=== PATIENT | male | born 1995 | race Caucasian/White ===

== ENCOUNTER 2020-03-17 17:01 | Emergency (ER) | payer MEDICAID ==
--- NOTE | 2020-03-17 18:29 | ED Physician Documentation ---
PD HPI UPPER EXT INJURY - Stated complaint Stated Complaint: LT WRIST INJURY - Chief complaint Chief Complaint: Trauma Ext - History obtained from History obtained from: Patient (Fell on his skateboard on outstretched wrist and has moderate pain near the distal radius of the left wrist. No other injuries. This happened today.) Review of Systems Constitutional: reports: Reviewed and negative Throat: reports: Reviewed and negative Cardiac: reports: Reviewed and negative Respiratory: reports: Reviewed and negative PD PAST MEDICAL HISTORY - Past Medical History Past Medical History: No Psych: ADD/ADHD Musculoskeletal: Other Other Past Medical History: Spinal stenosis - Past Surgical History Past Surgical History: Yes General: Appendectomy - Present Medications Home Medications: Ambulatory Orders Medication Instructions Recorded Confirmed No Known Home Medications 10/29/14 10/29/14 - Allergies Allergies/Adverse Reactions: Allergies Allergy/AdvReac Type Severity Reaction Status Date / Time No Known Drug Allergies Allergy Verified 03/17/20 17:07 - Social History Does the pt smoke?: No Smoking Status: Current every day smoker Does the pt drink ETOH?: Yes Does the pt have substance abuse?: Yes Substance Use and Type: Marijuana - Immunizations Immunizations are current?: No Immunizations: TDAP >10years/unknown PD ED PE NORMAL - Vitals Vital signs reviewed: Yes - General General: Alert and oriented X 3, No acute distress - Extremities Extremities: Other (Mild tenderness of the dorsal wrist, not the snuffbox. Not on the ulnar side.) - Neuro Neuro: Alert and oriented X 3, Normal speech Results - Vitals Vitals: Vital Signs - 24 hr 03/17/20 03/17/20 17:08 18:44 Temperature 37.0 C 37.0 C Heart Rate 77 80 Respiratory 16 16 Rate Blood Pressure 160/100 H 146/93 H O2 Saturation 97 98 Oxygen O2 Source Room air PD MEDICAL DECISION MAKING - ED course ED course: X-ray shows a potential cortical lucency at the ulnar styloid, however he has absolutely no tenderness there so I think. it is inconsequential. Departure - Departure Disposition: 01 Home, Self Care Clinical Impression: Left wrist sprain Qualifiers: Encounter type: initial encounter Qualified Code(s): S63.502A - Unspecified sprain of left wrist, initial encounter Condition: Good Record reviewed to determine appropriate education?: Yes Instructions: ED Sprain Wrist, ED Splint Care Velcro Comments: Ibuprofen as needed for pain, wear the splint as needed for comfort. Return for new or worsening symptoms. Follow-up with your doctor in a week if not better.
[2020-03-17 18:45] VITALS: BP 146/93
--- NOTE | 2020-03-17 18:53 | XRAY Report ---
Reason: fall skateboard, wrist injury Procedure Date: 03/17/2020 Accession Number: [id number] / [id number] Procedure: XR - Wrist 4 View LT CPT Code: Final Report FULL RESULT: EXAM: LEFT WRIST RADIOGRAPHY EXAM DATE: 03/17/2020 06:31 PM. CLINICAL HISTORY: Fall skateboard, wrist injury. COMPARISON: None. TECHNIQUE: 4 views. FINDINGS: Bones: Cortical lucency seen at the base of the ulnar styloid concerning for a nondisplaced acute distal ulnar fracture. Adjacent soft tissue swelling. Correlate clinically. No other acute fractures are seen. Joints: No subluxation. IMPRESSION: Cortical lucency seen at the base of the ulnar styloid concerning for a nondisplaced acute distal ulnar fracture. Adjacent soft tissue swelling. Correlate clinically. No other acute fractures are seen. RADIA
== END 2020-03-17 19:05 | disposition home or self-care (01) ==
LOC: ED 17:01
DX: S63.502A Unspecified sprain of left wrist, initial encounter (principal); V00.131A Fall from skateboard, initial encounter; Y93.51 Activity, roller skating (inline) and skateboarding
CPT/HCPCS: 99282; 99283

== ENCOUNTER 2020-04-05 16:12 | Emergency (ER) | payer MEDICAID ==
[2020-04-05] MEDS ORDERED: KETOROLAC 30 MG/ML VIAL IVP STA (16:22)
[2020-04-05] MEDS ORDERED: SODIUM CHLORIDE 0.9% 1,000 ML IV STA (16:22)
[2020-04-05] MEDS ORDERED: ONDANSETRON 4 MG/2 ML VIAL IVP STA (16:22)
--- NOTE | 2020-04-05 16:24 | ED Physician Documentation ---
PD HPI ABD PAIN - Stated complaint Stated Complaint: ABD PX,VOMITING - History obtained from History obtained from: Patient - History of Present Illness Timing - onset: Other (This is a 24-year-old gentleman who uses marijuana daily. He has chronic back pain. Over the last month and a half or so he is developed constant burning left-sided abdominal pain associated with vomiting and occasionally diarrhea. He finds relief from a hot shower. He was started on omeprazole which is not helpful. He did have an ultrasound ordered by his primary care physician for this a couple of weeks ago which was reportedly normal. He has been losing weight during this timeframe.) Review of Systems Constitutional: reports: Sweats. denies: Fever, Chills Throat: denies: Dental pain / toothache, Sore throat Cardiac: denies: Chest pain / pressure, Palpitations PD PAST MEDICAL HISTORY - Past Medical History Psych: ADD/ADHD Musculoskeletal: Other - Past Surgical History Past Surgical History: Yes General: Appendectomy - Present Medications Home Medications: Ambulatory Orders Medication Instructions Recorded Confirmed Amoxicillin 2 tab PO TID #60 capsule 04/05/20 Dicyclomine [Bentyl] 20 mg PO QID PRN #15 capsule 04/05/20 Ondansetron Odt [Zofran] 4 mg TL Q6H PRN #10 tablet 04/05/20 - Allergies Allergies/Adverse Reactions: Allergies Allergy/AdvReac Type Severity Reaction Status Date / Time No Known Drug Allergies Allergy Verified 04/05/20 16:25 - Social History Does the pt smoke?: No Smoking Status: Current every day smoker Does the pt drink ETOH?: Yes Does the pt have substance abuse?: Yes - Immunizations Immunizations are current?: No Immunizations: TDAP >10years/unknown PD ED PE NORMAL - Vitals Vital signs reviewed: Yes (He appears anxious and is hypertensive) - General General: Alert and oriented X 3, No acute distress - HEENT HEENT: PERRL, EOMI - Neck Neck: Supple, no meningeal sign, No bony TTP - Cardiac Cardiac: RRR, No murmur - Respiratory Respiratory: No respiratory distress, Clear bilaterally - Abdomen Abdomen: Normal bowel sounds, Soft, Non tender - Back Back: No CVA TTP, No spinal TTP - Derm Derm: Normal color, Warm and dry - Extremities Extremities: No edema, No calf tenderness / cord - Neuro Neuro: Alert and oriented X 3, Normal speech Results - Vitals Vitals: Vital Signs - 24 hr 04/05/20 04/05/20 16:22 17:00 Temperature 36.7 C Heart Rate 101 H 86 Respiratory 16 18 Rate Blood Pressure 170/117 H 145/96 H O2 Saturation 100 98 Oxygen O2 Source Room air - Labs Labs: Laboratory Tests 04/05/20 04/05/20 16:30 16:30 WBC 7.6 RBC 5.15 Hgb 16.4 Hct 48.4 MCV 94.0 MCH 31.8 H MCHC 33.9 RDW 11.9 L Plt Count 229 MPV 9.9 Neut # (Auto) 5.6 Lymph # (Auto) 1.1 L [place] # (Auto) 0.8 Eos # (Auto) 0.0 Baso # (Auto) 0.1 Absolute Nucleated RBC 0.00 Nucleated RBC % 0.0 Sodium 137 Potassium 4.0 Chloride 97 L Carbon Dioxide 24 Anion Gap 16.0 H BUN 13 Creatinine 1.0 Estimated GFR (MDRD) 90 Glucose 91 Calcium 9.4 Total Bilirubin 2.0 H AST 47 H ALT 45 Alkaline Phosphatase 78 Total Protein 7.6 Albumin 4.6 Globulin 3.0 Albumin/Globulin Ratio 1.5 Lipase 24 - Rads (name of study) CT of the abdomen and pelvis with IV contrast Radiology: EMP read contemporaneously (Mild right-sided pneumonia, no intra- abdominal acute process.) PD MEDICAL DECISION MAKING - ED course ED course: 24-year-old gentleman presents with now subacute abdominal pain, the pattern and history fits that of cannabinoid hyperemesis. Reportedly had a normal ultrasound within the last few weeks. Lab work notable for only a very mild elevation in bilirubin, CT notable for no intra-abdominal process but does have potentially mild right-sided pneumonia which is treated with high-dose amoxicillin. Counseled at length that the only cure would be to quit smoking marijuana. Departure - Departure Disposition: 01 Home, Self Care Clinical Impression: Cannabinoid hyperemesis syndrome Pneumonia Qualifiers: Pneumonia type: aspiration pneumonia Aspiration pneumonia type: due to vomit Laterality: right Lung location: lower lobe of lung Qualified Code(s): J69.0 - Pneumonitis due to inhalation of food and vomit Condition: Good Record reviewed to determine appropriate education?: Yes Instructions: ED Nausea Vomiting Prescriptions: Amoxicillin 2 tab PO TID #60 capsule Dicyclomine [Bentyl] 20 mg PO QID PRN #15 capsule PRN Reason: Abdominal Pain Ondansetron Odt [Zofran] 4 mg TL Q6H PRN #10 tablet PRN Reason: Nausea / Vomiting Comments: You should continue the medications that your doctor prescribed you and you can add the medications I am giving you here. I do not expect them to be completely curative, as discussed the only cure will be sometime in the complete cessation of marijuana and all THC containing products. Return anytime if worse and follow-up with your primary care physician, on Tuesday as scheduled.
[2020-04-05] MEDS ORDERED: IOVERSOL 320 100 ML VIAL IVP ONE ×2 (16:31→17:22)
[2020-04-05 16:41] LABS: BASOPHILS # (AUTO) 0.1 10^3/uL (0.0-0.1); BASOPHILS % (AUTO) 1.1 %; EOSINOPHILS % (AUTO) 0.1 %; HGB - HEMOGLOBIN 16.4 g/dL (14.0-18.0); LYMPHOCYTES # (AUTO) 1.1 10^3/uL (1.5-3.5); LYMPHOCYTES % (AUTO) 14.3 %; MEAN CORPUSCULAR HEMOGLOBIN 31.8 pg (27.0-31.0); MEAN CORPUSCULAR HGB CONC 33.9 g/dL (32.0-36.0); MEAN PLATELET VOLUME 9.9 fL (7.4-11.4); MONOCYTES # (AUTO) 0.8 10^3/uL (0.0-1.0); MONOCYTES % (AUTO) 10.3 %; NEUTROPHILS # (AUTO) 5.6 10^3/uL (1.5-6.6); NEUTROPHILS % (AUTO) 73.9 %; PLT - PLATELET COUNT 229 10^3/uL (130-450); RED BLOOD COUNT 5.15 10^6/uL (4.70-6.10); RED CELL DISTRIBUTION WIDTH 11.9 % (12.0-15.0); WHITE BLOOD COUNT 7.6 x10^3/uL (4.8-10.8)
[2020-04-05 16:57] LABS: ALBUMIN 4.6 g/dL (3.2-5.5); ALBUMIN/GLOBULIN RATIO 1.5 (1.0-2.2); CALCIUM 9.4 mg/dL (8.5-10.3); TOTAL PROTEIN 7.6 g/dL (6.7-8.2)
[2020-04-05 17:05] VITALS: BP 145/96
[2020-04-05] MEDS ORDERED: HALOPERIDOL 5 MG/ML VIAL IVP ONE (17:28)
--- NOTE | 2020-04-05 17:45 | CT Report ---
Reason: iv only, abd pain Procedure Date: 04/05/2020 Accession Number: [id number] / [id number] Procedure: CT - Abdomen/Pelvis W CPT Code: Final Report FULL RESULT: PROCEDURE: Abdomen/Pelvis W INDICATIONS: iv only, abd pain CONTRAST: IV CONTRAST: Optiray 320 ml: 100 PO CONTRAST: *NO PO CONTRAST TECHNIQUE: After the administration of oral and intravenous contrast, 5 mm thick sections acquired from the diaphragms to the symphysis. 5 mm thick coronal and sagittal reformats were acquired. For radiation dose reduction, the following was used: automated exposure control, adjustment of mA and/or kV according to patient size. COMPARISON: None. FINDINGS: Image quality: Excellent. ABDOMEN: Lung bases: Patchy groundglass opacities involving the right middle lobe and right lower lobe.. Heart size is normal. Solid organs: Liver and spleen are normal in size and enhancement. Gallbladder is unremarkable. Biliary system is non dilated. Pancreas enhances normally. No adrenal nodules. Kidneys demonstrate normal size and enhancement, without hydronephrosis. Peritoneum and bowel: Bowel loops demonstrate normal wall thickness and caliber. No free fluid or air. Postoperative changes from prior appendectomy. Nodes and vessels: No retroperitoneal or mesenteric adenopathy by size criteria. Aorta and inferior vena cava are normal in size. Miscellaneous: No ventral hernias. PELVIS: Genitourinary: Bladder wall thickness is normal. Miscellaneous: No inguinal hernias or adenopathy. Bones: No suspicious bony lesions. No vertebral body compression fractures. IMPRESSION: 1. Patchy right middle lobe and right lower lobe opacities compatible with focal airspace disease/pneumonia. 2. CT abdomen and pelvis without acute abnormalities. No evidence for obstruction. Postsurgical changes from prior appendectomy. Reviewed by: Soy Almaraz MD on 04/05/2020 5:43 PM PDT Approved by: Soy Almaraz MD on 04/05/2020 5:43 PM PDT Station ID: [id number]
[2020-04-05] MEDS ORDERED: AMOXICILLIN 250 MG CAPSULE PO STA (18:01)
== END 2020-04-05 18:12 | disposition home or self-care (01) ==
LOC: ED 16:12
DX: R11.2 Nausea with vomiting, unspecified (principal); F12.988 Cannabis use, unspecified with other cannabis-induced disorder; J69.0 Pneumonitis due to inhalation of food and vomit
CPT/HCPCS: 36415; 74177; 80053; 83690; 85025; 96374; 96375; 99284; A9270; Q9967

== ENCOUNTER 2020-09-21 10:16 | Emergency (ER) | payer MEDICAID ==
--- NOTE | 2020-09-21 11:00 | XRAY Report ---
PROCEDURE: Hand 3 View RT INDICATIONS: Trauma TECHNIQUE: 3 views of the hand(s) acquired. COMPARISON: None available FINDINGS: Bones: No acute fractures or dislocations. There is a remote, unfused ulnar sided fracture. There is a remote, healed fifth metacarpal fracture. No suspicious bony lesions. Soft tissues: No suspicious soft tissue calcifications. IMPRESSION: No acute fractures are seen. Remote, healed fifth metacarpal fracture. Remote, unhealed ulnar sided fracture Reviewed by: Tan Shahid MD on 09/21/2020 9:[address] [facility] Approved by: Tan Shahid MD on 09/21/2020 9:[address] [facility] Station ID: [id number]
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
[2020-09-21 11:44] VITALS: BP 128/84
== END 2020-09-21 11:44 | disposition home or self-care (01) ==
LOC: ED 10:16
DX: S60.221A Contusion of right hand, initial encounter (principal); Y04.0XXA Assault by unarmed brawl or fight, initial encounter; Y92.009 Unspecified place in unspecified non-institutional (private) residence as the place of occurrence of the external cause; F17.200 Nicotine dependence, unspecified, uncomplicated
CPT/HCPCS: 99282; 99283

== ENCOUNTER 2021-05-26 11:13 | Outpatient (CLI) | payer MEDICAID ==
--- NOTE | 2021-05-26 13:19 | XRAY Report ---
PROCEDURE: Lumbar Spine Complete INDICATIONS: BACK PAIN TECHNIQUE: 4 views of the lumbar spine were acquired with oblique view. COMPARISON: None. FINDINGS: Bones: 5 [id number] vertebrae are present. There is normal bony alignment. No vertebral body compression fractures. No suspicious bony lesions. No pars interarticularis defects. Soft tissues: Overlying bowel gas pattern is normal. No suspicious soft tissue calcifications. IMPRESSION: No osseous lesion. If there is continued clinical concern for pathology, then MRI should be considere d for further evaluation. Reviewed by: Heather Powell MD, PhD on 05/26/2021 1:17 PM PDT Approved by: Heather Powell MD, PhD on 05/26/2021 1:17 PM PDT Station ID: [id number]
== END 2021-05-26 11:14 | disposition home or self-care (01) ==
LOC: DI 11:13
PROVIDERS: ATTEND Physical Medicine & Rehabilitation
DX: M51.26 Other intervertebral disc displacement, lumbar region (principal); M47.817 Spondylosis without myelopathy or radiculopathy, lumbosacral region; M48.061 Spinal stenosis, lumbar region without neurogenic claudication

== ENCOUNTER 2021-07-07 09:31 | Emergency (ER) | payer MEDICAID ==
[2021-07-07 10:34] LABS: BASOPHILS # (AUTO) 0.1 10^3/uL (0.0-0.1); BASOPHILS % (AUTO) 1.1 %; EOSINOPHILS # (AUTO) 0.2 10^3/uL (0.0-0.7); EOSINOPHILS % (AUTO) 4.8 %; HCT - HEMATOCRIT 44.4 % (42.0-52.0); HGB - HEMOGLOBIN 15.1 g/dL (14.0-18.0); LYMPHOCYTES # (AUTO) 0.8 10^3/uL (1.5-3.5); LYMPHOCYTES % (AUTO) 18.8 %; MEAN CORPUSCULAR HEMOGLOBIN 32.9 pg (27.0-31.0); MEAN CORPUSCULAR VOLUME 96.7 fL (80.0-94.0); MEAN PLATELET VOLUME 9.9 fL (7.4-11.4); MONOCYTES # (AUTO) 0.4 10^3/uL (0.0-1.0); MONOCYTES % (AUTO) 8.9 %; NEUTROPHILS # (AUTO) 2.9 10^3/uL (1.5-6.6); NEUTROPHILS % (AUTO) 66.2 %; PLT - PLATELET COUNT 191 10^3/uL (130-450); RED BLOOD COUNT 4.59 10^6/uL (4.70-6.10); RED CELL DISTRIBUTION WIDTH 11.8 % (12.0-15.0); WHITE BLOOD COUNT 4.4 x10^3/uL (4.8-10.8)
--- NOTE | 2021-07-07 10:36 | XRAY Report ---
PROCEDURE: Chest 1 View X-Ray INDICATIONS: Chest Pain TECHNIQUE: One view of the chest was acquired. COMPARISON: None FINDINGS: Surgical changes and devices: None. Lungs and pleura: No pleural effusions or pneumothorax. Lungs are clear. Mediastinum: Mediastinal contours appear normal. Heart size is normal. Bones and chest wall: No suspicious bony lesions. Overlying soft tissues appear unremarkable. IMPRESSION: No acute pulmonary process. Reviewed by: Kika Boykin MD on 07/07/2021 10:35 AM PDT Approved by: Kika Boykin MD on 07/07/2021 10:35 AM PDT Station ID: [id number]
[2021-07-07 10:49] LABS: ALBUMIN 4.6 g/dL (3.2-5.5); ALBUMIN/GLOBULIN RATIO 2.2 (1.0-2.2); BILIRUBIN,TOTAL 0.9 mg/dL (0.2-1.0); CALCIUM 9.1 mg/dL (8.5-10.3); CREATININE 0.7 mg/dL (0.6-1.2); POTASSIUM 4.3 mmol/L (3.5-5.0); TOTAL PROTEIN 6.7 g/dL (6.7-8.2)
--- NOTE | 2021-07-07 11:01 | ED Physician Documentation ---
PD HPI CHEST PAIN - Stated complaint Stated Complaint: CHEST PX, L SIDE - Chief complaint Chief Complaint: Cardiac - History obtained from History obtained from: Patient - History of Present Illness Timing - onset: Last night Timing - onset during: Rest Timing - details: Gradual onset, Waxing and waning Pain level max: 8 Pain level now: 3 Quality: Sharp Location: Left chest Radiation: Other (left upper back/shoulder) Improved by: Rest Worsened by: Movement, Position Associated symptoms: No: Shortness of air, Diaphoresis, Nausea, Vomiting, Feeling faint / dizzy, General Weakness, Palpitations, Cough Similar symptoms before: Has not had sx before Recently seen: Not recently seen Review of Systems Constitutional: denies: Fever, Chills Nose: denies: Rhinorrhea / runny nose, Congestion Throat: denies: Sore throat Cardiac: denies: Palpitations Respiratory: denies: Cough GI: denies: Nausea, Vomiting, Diarrhea Skin: denies: Rash Musculoskeletal: denies: Neck pain, Back pain PD PAST MEDICAL HISTORY - Past Medical History Past Medical History: Yes Cardiovascular: None Respiratory: Asthma Neuro: None Endocrine/Autoimmune: None GI: GERD : None HEENT: None Psych: ADD/ADHD Musculoskeletal: Chronic back pain, Other Derm: Eczema - Past Surgical History Past Surgical History: Yes General: Appendectomy - Present Medications Home Medications: Ambulatory Orders Medication Instructions Recorded Confirmed Cyclobenzaprine [Flexeril] 10 mg PO TID PRN 07/07/21 07/07/21 traMADol [Ultram] 50 mg PO BID PRN 07/07/21 07/07/21 - Allergies Allergies/Adverse Reactions: Allergies Allergy/AdvReac Type Severity Reaction Status Date / Time No Known Drug Allergies Allergy Verified 07/07/21 09:43 - Social History Does the pt smoke?: Yes Smoking Status: Current some day smoker Does the pt drink ETOH?: Yes Does the pt have substance abuse?: Yes Substance Use and Type: Marijuana - Immunizations Immunizations are current?: No Immunizations: Other immun not current PD ED PE NORMAL - Vitals Vital signs reviewed: Yes - General General: Alert and oriented X 3, No acute distress - HEENT HEENT: PERRL - Neck Neck: Supple, no meningeal sign - Cardiac Cardiac: RRR, Strong equal pulses - Respiratory Respiratory: No respiratory distress, Clear bilaterally - Abdomen Abdomen: Soft, Non tender, Non distended - Back Back: No CVA TTP, No spinal TTP - Derm Derm: Warm and dry - Extremities Extremities: No edema, No calf tenderness / cord - Neuro Neuro: Alert and oriented X 3 - Psych Psych: Normal mood, Normal affect - Free text exam Free text exam: mild chest wall and L shoulder TTP. Results - Vitals Vitals: Vital Signs - 24 hr 07/07/21 07/07/21 07/07/21 09:38 09:55 11:12 Temperature 36.8 C 36.8 C Heart Rate 82 84 74 Respiratory 12 14 18 Rate Blood Pressure 132/86 H 144/94 H 122/84 H O2 Saturation 100 100 99 Oxygen O2 Source Room air - EKG (time done) 0936 Rate: Rate (enter#) (86) Rhythm: NSR [place]: Normal Intervals: Other (short RI) QRS: Normal Ischemia: Normal ST segments - Labs Labs: Laboratory Tests 07/07/21 07/07/21 07/07/21 10:29 10:29 10:29 WBC 4.4 L RBC 4.59 L Hgb 15.1 Hct 44.4 MCV 96.7 H MCH 32.9 H MCHC 34.0 RDW 11.8 L Plt Count 191 MPV 9.9 Neut # (Auto) 2.9 Lymph # (Auto) 0.8 L [place] # (Auto) 0.4 Eos # (Auto) 0.2 Baso # (Auto) 0.1 Absolute Nucleated RBC 0.00 Nucleated RBC % 0.0 Sodium 141 Potassium 4.3 Chloride 105 Carbon Dioxide 28 Anion Gap 8.0 BUN 12 Creatinine 0.7 Estimated GFR (MDRD) 135 Glucose 102 H Calcium 9.1 Total Bilirubin 0.9 AST 20 ALT 22 Alkaline Phosphatase 57 Troponin I High Sens < 2.3 L Total Protein 6.7 Albumin 4.6 Globulin 2.1 Albumin/Globulin Ratio 2.2 Lipase 25 - Rads (name of study) cxr Radiology: Final report received, EMP read contemporaneously, See rad report (No acute pulmonary process. ) PD MEDICAL DECISION MAKING - ED course Complexity details: reviewed results, re-evaluated patient, considered differential (No ST elevation RI, no aortic dissection, no PE, no tension pneumothorax, no aortic aneurysm), d/w patient ED course: 25-year-old male with atypical chest pain. No acute findings on EKG, telemetry, chest x-ray or laboratory testing. Declines pain medication here. We will have him follow-up with his doctor for further care. Patient counseled regarding signs and symptoms for which I believe and urgent re-evaluation would be necessary. Patient with good understanding of and agreement to plan and is comfortable going home at this time This document was made in part using voice recognition software. While efforts are made to proofread this document, sound alike and grammatical errors may occur. Departure - Departure Disposition: 01 Home, Self Care Clinical Impression: Chest pain Qualifiers: Chest pain type: unspecified Qualified Code(s): R07.9 - Chest pain, unspecified Condition: Good Instructions: ED Chest Pain Atypical Unkn Cause Follow-Up: your,doctor in 1 week [Other] Comments: Your testing does not show any acute abnormalities today. Your x-ray, blood work and EKG do not show any acute abnormalities. You can use Motrin or Tylenol as needed for pain. Please follow-up with your doctor for further care. Return if you worsen. Discharge Date/Time: 07/07/21 11:17
[2021-07-07 11:13] VITALS: BP 122/84
== END 2021-07-07 11:17 | disposition home or self-care (01) ==
LOC: ED 09:31
DX: R07.89 Other chest pain (principal); M25.512 Pain in left shoulder; F17.200 Nicotine dependence, unspecified, uncomplicated
CPT/HCPCS: 36415; 80053; 83690; 84484; 85025; 93005; 99284

== ENCOUNTER 2021-08-16 17:51 | Emergency (ER) | payer MEDICAID ==
[2021-08-16] MEDS ORDERED: PANTOPRAZOLE 40 MG VIAL IVP STA (18:34)
[2021-08-16] MEDS ORDERED: SODIUM CHLORIDE 0.9% 1,000 ML IV STA (18:34)
[2021-08-16] MEDS ORDERED: ONDANSETRON 4 MG/2 ML VIAL IVP STA (18:34)
[2021-08-16] MEDS ORDERED: LORazepam 2 MG/ML VIAL IVP STA (18:34)
--- NOTE | 2021-08-16 18:37 | ED Physician Documentation ---
PD HPI ABD PAIN - Stated complaint Stated Complaint: NAUSEA,VOMITING BLOOD - Chief complaint Chief Complaint: Abd Pain - History obtained from History obtained from: Patient - Additional information Additional information: 25-year-old gentleman presents for abdominal pain, vomiting, and hematemesis. He has longstanding abdominal issues, negative colonoscopy in the past and states he has a GI doctor in [place] who performs frequent EGDs with what sounds like esophagitis. He is supposed to be on omeprazole but is rarely compliant. He drinks alcohol daily, 10-15 beers a day and also is a smoker and daily marijuana user. For the last 3 to 4 days has been vomiting with moderate amount of blood. Also occasional hematochezia. He has epigastric pain. No fevers or chills. Review of Systems Ten Systems: 10 systems reviewed and negative Constitutional: reports: Fatigue Cardiac: denies: Chest pain / pressure, Palpitations Respiratory: denies: Dyspnea, Cough PD PAST MEDICAL HISTORY - Past Medical History Cardiovascular: None Respiratory: Asthma Neuro: None Endocrine/Autoimmune: None GI: GERD : None HEENT: None Psych: ADD/ADHD Musculoskeletal: Chronic back pain, Other Derm: Eczema - Past Surgical History Past Surgical History: Yes General: Appendectomy - Present Medications Home Medications: Ambulatory Orders Medication Instructions Recorded Confirmed Cyclobenzaprine [Flexeril] 10 mg PO TID PRN 07/07/21 07/07/21 traMADol [Ultram] 50 mg PO BID PRN 07/07/21 07/07/21 LORazepam [Ativan] 1 mg PO TID PRN #12 tablet 08/16/21 Omeprazole 40 mg PO BID #60 cap 08/16/21 Ondansetron Odt [Zofran] 4 mg TL Q6H PRN #10 tablet 08/16/21 traZODone [Desyrel] 50 mg PO HS #30 tablet 08/16/21 - Allergies Allergies/Adverse Reactions: Allergies Allergy/AdvReac Type Severity Reaction Status Date / Time No Known Drug Allergies Allergy Verified 08/16/21 18:00 - Social History Does the pt smoke?: Yes Smoking Status: Current some day smoker Does the pt drink ETOH?: Yes Does the pt have substance abuse?: Yes - Immunizations Immunizations are current?: No Immunizations: Other immun not current PD ED PE NORMAL - Vitals Vital signs reviewed: Yes (Unremarkable vitals save modest hypertension) - General General: Alert and oriented X 3, No acute distress - HEENT HEENT: PERRL, EOMI - Neck Neck: Supple, no meningeal sign, No bony TTP - Cardiac Cardiac: RRR, No murmur - Respiratory Respiratory: No respiratory distress, Clear bilaterally - Abdomen Abdomen: Soft, Non tender - Back Back: No CVA TTP, No spinal TTP - Derm Derm: Normal color, Warm and dry - Extremities Extremities: No edema, No calf tenderness / cord - Neuro Neuro: Alert and oriented X 3, Normal speech Results - Vitals Vitals: Vital Signs - 24 hr 08/16/21 17:54 Temperature 36.5 C Heart Rate 79 Respiratory 16 Rate Blood Pressure 131/77 H O2 Saturation 100 Oxygen O2 Source Room air - Labs Labs: Laboratory Tests 08/16/21 08/16/21 08/16/21 18:43 18:43 18:43 WBC 8.4 RBC 5.14 Hgb 16.8 Hct 48.8 MCV 94.9 H MCH 32.7 H MCHC 34.4 RDW 11.7 L Plt Count 259 MPV 10.1 Neut # (Auto) 7.1 H Lymph # (Auto) 0.7 L [place] # (Auto) 0.5 Eos # (Auto) 0.0 Baso # (Auto) 0.1 Absolute Nucleated RBC 0.00 Nucleated RBC % 0.0 PT 12.3 INR 1.1 Sodium 141 Potassium 4.2 Chloride 100 L Carbon Dioxide 24 Anion Gap 17.0 H BUN 18 Creatinine 0.8 Estimated GFR (MDRD) 116 Glucose 82 Calcium 9.8 Total Bilirubin 1.5 H AST 44 H ALT 61 H Alkaline Phosphatase 73 Total Protein 8.5 H Albumin 5.5 Globulin 3.0 Albumin/Globulin Ratio 1.8 Lipase 21 L Ethyl Alcohol < 5.0 PD MEDICAL DECISION MAKING - ED course ED course: 25-year-old gentleman who abuses alcohol, tobacco, and marijuana, and is rarely compliant with his PPI presents with upper abdominal pain, vomiting, hematemesis. 25-year-old gentleman presents with what is likely alcoholic gastritis, potentiated by anxiety. He had hematemesis but his blood counts suggest no evidence of blood loss. He does have modest alcoholic liver damage and understands the need to quit drinking. Departure - Departure Disposition: 01 Home, Self Care Clinical Impression: Alcoholic gastritis, Alcoholic liver disease Condition: Good Record reviewed to determine appropriate education?: Yes Instructions: ED PUD Vs Gastritis, ED Alcohol Abuse Prescriptions: LORazepam [Ativan] 1 mg PO TID PRN #12 tablet PRN Reason: Anxiety traZODone [Desyrel] 50 mg PO HS #30 tablet Omeprazole 40 mg PO BID #60 cap Ondansetron Odt [Zofran] 4 mg TL Q6H PRN #10 tablet PRN Reason: Nausea / Vomiting Comments: Prescription sent electronically to [facility] in [place]. As discussed I am writing some prescriptions for sleep, anxiety/alcohol withdrawal, a refill of your stomach medication, and something for nausea. Also as discussed your blood work demonstrates some level of alcoholic liver damage, it is imperative to quit drinking. The liver damage is at a level where I think if you were to quit drinking, he would recover just fine, that said if you were to continue to drink, you may develop liver failure. Follow-up with your primary care physician within the week for refills and reevaluation.
[2021-08-16 18:52] LABS: BASOPHILS # (AUTO) 0.1 10^3/uL (0.0-0.1); BASOPHILS % (AUTO) 0.6 %; EOSINOPHILS % (AUTO) 0.2 %; HCT - HEMATOCRIT 48.8 % (42.0-52.0); HGB - HEMOGLOBIN 16.8 g/dL (14.0-18.0); LYMPHOCYTES # (AUTO) 0.7 10^3/uL (1.5-3.5); MEAN CORPUSCULAR HEMOGLOBIN 32.7 pg (27.0-31.0); MEAN CORPUSCULAR HGB CONC 34.4 g/dL (32.0-36.0); MEAN CORPUSCULAR VOLUME 94.9 fL (80.0-94.0); MEAN PLATELET VOLUME 10.1 fL (7.4-11.4); MONOCYTES # (AUTO) 0.5 10^3/uL (0.0-1.0); MONOCYTES % (AUTO) 6.2 %; NEUTROPHILS # (AUTO) 7.1 10^3/uL (1.5-6.6); NEUTROPHILS % (AUTO) 84.6 %; PLT - PLATELET COUNT 259 10^3/uL (130-450); RED BLOOD COUNT 5.14 10^6/uL (4.70-6.10); RED CELL DISTRIBUTION WIDTH 11.7 % (12.0-15.0); WHITE BLOOD COUNT 8.4 x10^3/uL (4.8-10.8)
[2021-08-16 18:57] LABS: INR 1.1 (0.8-1.2); PT - PROTHROMBIN TIME 12.3 secs (9.9-12.6)
[2021-08-16 19:01] LABS: ALBUMIN 5.5 g/dL (3.2-5.5); ALBUMIN/GLOBULIN RATIO 1.8 (1.0-2.2); ALKALINE PHOSPHATASE 73 IU/L (42-121); ALT ALANINE AMINOTRANSFERASE 61 IU/L (10-60); AST ASPARTATE AMINOTRANSFERASE 44 IU/L (10-42); BILIRUBIN,TOTAL 1.5 mg/dL (0.2-1.0); BUN - BLOOD UREA NITROGEN 18 mg/dL (6-20); CALCIUM 9.8 mg/dL (8.5-10.3); CARBON DIOXIDE - CO2 24 mmol/L (21-32); CHLORIDE 100 mmol/L (101-111); CREATININE 0.8 mg/dL (0.6-1.2); ETOH - ETHANOL < 5.0 mg/dL; GFR - MDRD 116 (>89); GLUCOSE 82 mg/dL (70-100); LIPASE 21 U/L (22-51); POTASSIUM 4.2 mmol/L (3.5-5.0); SODIUM 141 mmol/L (135-145); TOTAL PROTEIN 8.5 g/dL (6.7-8.2)
[2021-08-16 19:52] VITALS: BP 123/69
== END 2021-08-16 19:54 | disposition home or self-care (01) ==
LOC: ED 17:51
DX: K29.20 Alcoholic gastritis without bleeding (principal); K70.9 Alcoholic liver disease, unspecified; F41.9 Anxiety disorder, unspecified; F10.10 Alcohol abuse, uncomplicated; F12.10 Cannabis abuse, uncomplicated; F17.200 Nicotine dependence, unspecified, uncomplicated
CPT/HCPCS: 36415; 80053; 80320; 83690; 85025; 85610; 96374; 96375; 99284; J2060

== ENCOUNTER 2024-12-01 14:28 | Inpatient (IN) ==
[2024-12-01 14:48] LABS: BASOPHILS # (AUTO) 0.1 10^3/uL (0.0-0.1); BASOPHILS % (AUTO) 1.6 %; EOSINOPHILS % (AUTO) 0.2 %; HGB - HEMOGLOBIN 13.7 g/dL (14.0-18.0); LYMPHOCYTES # (AUTO) 0.8 10^3/uL (1.5-3.5); LYMPHOCYTES % (AUTO) 16.8 %; MEAN CORPUSCULAR HEMOGLOBIN 37.2 pg (27.0-31.0); MEAN CORPUSCULAR HGB CONC 34.3 g/dL (32.0-36.0); MEAN CORPUSCULAR VOLUME 108.7 fL (80.0-94.0); MEAN PLATELET VOLUME 9.7 fL (7.4-11.4); MONOCYTES # (AUTO) 0.5 10^3/uL (0.0-1.0); NEUTROPHILS # (AUTO) 3.5 10^3/uL (1.5-6.6); NEUTROPHILS % (AUTO) 71.2 %; PLT - PLATELET COUNT 208 10^3/uL (130-450); RED BLOOD COUNT 3.68 10^6/uL (4.70-6.10); RED CELL DISTRIBUTION WIDTH 12.1 % (12.0-15.0); WHITE BLOOD COUNT 4.9 x10^3/uL (4.8-10.8)
[2024-12-01] MEDS: SODIUM CHLORIDE 0.9% 1,000 ML IV STA (14:52)
[2024-12-01] MEDS: LORazepam 2 MG/ML VIAL IVP STA ×6 (14:52→18:12)
[2024-12-01 15:04] LABS: ACETAMINOPHEN 23.7 ug/mL; ALBUMIN 4.5 g/dL (3.2-5.5); ALBUMIN/GLOBULIN RATIO 1.6 (1.0-2.2); ALKALINE PHOSPHATASE 137 IU/L (42-121); ALT ALANINE AMINOTRANSFERASE 79 IU/L (10-60); AST ASPARTATE AMINOTRANSFERASE 81 IU/L (10-42); BILIRUBIN,TOTAL 2.2 mg/dL (0.2-1.0); BUN - BLOOD UREA NITROGEN 6 mg/dL (6-20); CALCIUM 9.4 mg/dL (8.5-10.3); CARBON DIOXIDE - CO2 28 mmol/L (21-32); CHLORIDE 97 mmol/L (101-111); CREATININE 0.8 mg/dL (0.6-1.3); ETOH - ETHANOL < 10.0 mg/dL; GFR - MDRD 113 (>89); GLUCOSE 105 mg/dL (74-104); LIPASE 21 U/L (11-82); MAGNESIUM 1.4 mg/dL (1.7-2.3); POTASSIUM 2.9 mmol/L (3.5-4.5); SODIUM 138 mmol/L (135-145); TOTAL PROTEIN 7.4 g/dL (6.4-8.9)
[2024-12-01] MEDS ORDERED: THIAMINE INJ 100 MG in SODIUM CHLORIDE 0.9% 50 ML IV STA (15:05)
[2024-12-01 15:07] LABS: BILIRUBIN,URINE MODERATE (NEGATIVE); GLUCOSE, URINE (UA) NEGATIVE (NEGATIVE); KETONES,URINE (UA) TRACE mg/dL (NEGATIVE); LEUKOCYTE ESTERASE, URINE NEGATIVE (NEGATIVE); NITRITE,URINE NEGATIVE (NEGATIVE); OCCULT BLOOD,URINE NEGATIVE (NEGATIVE); PROTEIN,URINE 100 mg/dL (NEGATIVE); UROBILINOGEN,URINE 1 (NORMAL) E.U./dL (NORMAL)
--- NOTE | 2024-12-01 15:07 | ED Physician Documentation ---
History of Present Illness Stated complaint Stated Complaint: SZ/ETOH WITHDRAWL Chief complaint Chief Complaint: Neuro History obtained from History obtained from: Patient, Family and EMS Additonal information Additional information: HERE W [place] LONG HX ETOH 1/5 VODKA OR 15 BEERS/DAY STARTED CUTTING BACK A COUPLE OF WEEKS AGO. HAS SZ ABOUT 1 WEEK AGO, DID NOT SEEK MED TX SZ TODAY NO INJURY LAST DRINK ABOUT 36 HOURS AGO Meds/Allgy Home Medications Ambulatory Orders Medication Instructions Recorded Confirmed cyclobenzaprine 10 mg tablet 10 mg PO TID PRN Spasms 07/07/21 07/07/21 tramadol 50 mg tablet 50 mg PO BID PRN Pain 07/07/21 07/07/21 lorazepam 1 mg tablet 1 mg PO TID PRN Anxiety #12 tabs 08/16/21 omeprazole 40 mg capsule,delayed 40 mg PO BID #60 caps 08/16/21 release ondansetron 4 mg disintegrating 4 mg translingual Q6H PRN Nausea / 08/16/21 tablet Vomiting #10 tabs trazodone 50 mg tablet 50 mg PO HS #30 tabs 08/16/21 Allergies Allergies Allergy/AdvReac Type Severity Reaction Status Date / Time No Known Drug Allergies Allergy Verified 12/01/24 14:35 PFSH Social History Social History Smoking Status: Current some day smoker Do you vape?: No Do you feel safe in your home environment?: Yes Suffered physical, verbal, emotional, or financial abuse?: No History of Abuse: No Frequency: Occasional Exam Constitutional normal general appearance SHAKY DESPITE ALREADY HAD 1MG ATIVAN IV PRIOR TO MY EVAL HENMT TONGUE TREMORS, NO BITE Eyes PERRL Respiratory breath sounds equal bilaterally, normal respiratory effort and clear to auscultation bilaterally Cardiovascular TACHY, REG, NO MMR Gastrointestinal abdomen soft to palpation and nontender to palpation Psychiatry oriented x3 Results Vitals Vitals: Vital Signs - 24 hr 12/01/24 14:35 12/01/24 16:50 12/01/24 17:41 Temperature 36.4 C L 37.4 C Temperature Source Temporal Artery Scan Temporal Artery Scan Pulse Rate 108 H 102 H 95 Respiratory Rate 17 18 21 Blood Pressure 145/110 H 145/105 H 120/93 H O2 Saturation 99 98 100 O2 Source Room air Room air Room air Pain Intensity 0 0 Oxygen O2 Source Room air EKG (time done) 1810: EKG releavant findings:: EKG personally interpreted by author of this note. Relevant findings are: Significant artifact which obscures fine detail but looks like normal sinus rhythm without any obvious significant abnormalities. The computer is calling a PVC which I think is artifactual. Labs Labs: Laboratory Tests 12/01/24 12/01/24 12/01/24 14:42 14:49 14:49 WBC 4.9 RBC 3.68 L Hgb 13.7 L Hct 40.0 L MCV 108.7 H MCH 37.2 H MCHC 34.3 RDW 12.1 Plt Count 208 MPV 9.7 Neut # (Auto) 3.5 Lymph # (Auto) 0.8 L [place] # (Auto) 0.5 Eos # (Auto) 0.0 Baso # (Auto) 0.1 Absolute Nucleated RBC 0.00 Nucleated RBC % 0.0 Sodium 138 Potassium 2.9 L Chloride 97 L Carbon Dioxide 28 Anion Gap 13.0 BUN 6 Creatinine 0.8 Estimated GFR (MDRD) 113 Glucose 105 H Calcium 9.4 Magnesium 1.4 L Total Bilirubin 2.2 H AST 81 H ALT 79 H Alkaline Phosphatase 137 H Total Protein 7.4 Albumin 4.5 Globulin 2.9 Albumin/Globulin Ratio 1.6 Lipase 21 TSH 3.64 Urine Color DARK YELLOW Urine Clarity HAZY Urine pH 6.0 Ur Specific [place] >=1.030 H Urine Protein 100 H Urine Glucose (UA) NEGATIVE Urine Ketones TRACE Urine Occult Blood NEGATIVE Urine Nitrite NEGATIVE Urine Bilirubin MODERATE H Urine Urobilinogen 1 (NORMAL) Ur Leukocyte Esterase NEGATIVE Urine RBC None Seen Urine WBC 4-5 Ur Squamous Epith Cells RARE Squamous Urine Bacteria None Seen Urine Casts 0-2 Hyaline Casts 0-2 WBC Casts Urine Mucus Few Strands Ur Microscopic Review INDICATED Urine Culture Comments NOT INDICATED Salicylates < 1.5 Urine Opiates Screen NEGATIVE Ur Buprenorphine Scrn NEGATIVE Ur Oxycodone Screen NEGATIVE Urine Methadone Screen NEGATIVE Acetaminophen 23.7 Ur Barbiturates Screen NEGATIVE Ur Tricyclics Screen POSITIVE H Ur Phencyclidine Scrn NEGATIVE Ur Amphetamine Screen NEGATIVE U Methamphetamines Scrn NEGATIVE U Benzodiazepines Scrn NEGATIVE Urine Cocaine Screen NEGATIVE U Cannabinoids Screen POSITIVE H Ur Drug Screen Comment CUTOFF CONC BELOW: Ethyl Alcohol < 10.0 PD Medical Decision Making ED course ED course: 29-year-old gentleman presents with alcohol withdrawal and a seizure. On my evaluation initially he was still very shaky after receiving 1 mg of IV Ativan from Dr. Houston prior to shift change. He continued to get divided doses of Ativan but despite that his withdrawal symptoms, picking at things and shakiness and thrashing about continue to progress to the point where we were bolusing 4 mg of Ativan at a time. CBC showing mild anemia. His platelet count though is normal thankfully. Drug screen positive for cannabis and tricyclic's. CMP notable for modest liver disease. Magnesium was low and an IV dose was ordered. Family said he had a head injury, and was sent for CT scan which looks normal. I spoke with Dr. Maloney for admission at 5:45 PM. At the time of admission our hospitalist colleague requested another 4 mg of Ativan totaling 13 IV in the emergency department. He also received a dose of phenobarbital. The patient and family are counseled as to the diagnosis and need for admission. This document was made in part using voice recognition software, while efforts are made to proofread this document, sound alike an grammatical errors may occur. Critical Care Time(min): 45 Time Includes: Direct patient care, Review records, Reassess patient, Document care, Coordinate care, Medical consult and Family consult for tx dec Data interpretation: Labs and Pulse ox Discharge Plan Discharge Patient Disposition: 66 [facility] DC/Xfer Condition: Critical Clinical Impression: Alcohol withdrawal Qualifiers: Complication of substance-induced condition: with delirium Qualified Code(s): F10.931 - Alcohol use, unspecified with withdrawal delirium Prescriptions: No Action cyclobenzaprine 10 MG tablet 10 mg PO TID PRN (Reason: Spasms) tramadol 50 MG tablet 50 mg PO BID PRN (Reason: Pain) lorazepam 1 MG tablet 1 mg PO TID PRN (Reason: Anxiety) Qty: 12 0RF ondansetron 4 MG tablet,disintegrating 4 mg translingual Q6H PRN (Reason: Nausea / Vomiting) Qty: 10 0RF trazodone 50 MG tablet 50 mg PO HS Qty: 30 0RF omeprazole 40 MG capsule,delayed release(DR/EC) 40 mg PO BID Qty: 60 0RF Print Language: Icelandic
[2024-12-01 15:08] LABS: CLARITY,URINE HAZY (CLEAR)
[2024-12-01 15:13] LABS: SALICYLATE < 1.5 mg/dL
[2024-12-01 15:18] LABS: THYROID STIMULATING HORMONE 3.64 uIU/mL (0.34-5.60)
[2024-12-01 15:21] LABS: BACTERIA,URINE None Seen /HPF (None Seen); MUCUS,URINE Few Strands; RBC,URINE None Seen /HPF (0-5); SQUAMOUS EPITHELIAL CELL,UR RARE Squamous (<= Few)
[2024-12-01 15:22] LABS: THC CANNABINOID SCREEN, URINE POSITIVE (NEGATIVE)
[2024-12-01 15:23] LABS: AMPHETAMINE SCREEN,URINE NEGATIVE (NEGATIVE); BARBITURATE SCREEN,UR NEGATIVE (NEGATIVE); BENZODIAZEPINES SCREEN, URINE NEGATIVE (NEGATIVE); BUPRENORPHINE SCREEN, URINE NEGATIVE (NEGATIVE); COCAINE SCREEN URINE NEGATIVE (NEGATIVE); METHADONE SCREEN, URINE NEGATIVE (NEGATIVE); METHAMPHETAMINES SCREEN, URINE NEGATIVE (NEGATIVE); OPIATE SCREEN, URINE NEGATIVE (NEGATIVE); OXYCODONE SCREEN, URINE NEGATIVE (NEGATIVE); TRICYCLIC ANTIDEPRESSANT,URINE POSITIVE (NEGATIVE)
[2024-12-01] MEDS: SODIUM CHLORIDE 0.9% IV STA (16:02)
[2024-12-01] MEDS: THIAMINE IV STA (16:02)
[2024-12-01] MEDS: PHENobarbital 65 MG/ML VIAL IV STA (16:09)
--- NOTE | 2024-12-01 18:09 | HISTORY & PHYSICAL EXAMINATION ---
Chief Complaint Chief Complaint Chief Complaint: Alcohol withdrawal History of Present Illness Admitted From Admitted From:: Home History Obtained From Records Reviewed: Yes History obtained from: Father, sister at bedside Exam Limitations: Patient altered History of Present Illness HPI Comment/Other: Patient is a 29-year-old male with a history of depression, ADD, alcohol use who presents for alcohol withdrawal, as well as delirium tremens. History is elicited from father and sister at bedside. They state that he has been drinking heavily for about 3 to 4 months. They think he may have drink and a quarter to half gallon of vodka every day for the last few weeks. He was previously living with his girlfriend. His last drink was 2 days ago, on . He then called his father to help him go through alcohol withdrawal. For the last 2 days, he has been going through withdrawals. Earlier today, around 1 PM, he had an episode where he fell on the stairs. He then witnessed him shaking, with movement of his upper and lower extremities. He previously has had a seizure before, last time it was attributed to his alcohol use as well. Patient has never been intubated before. He has had alcohol withdrawal related seizures before. It usually takes him 3 to 4 days to go through these withdrawal symptoms. Per the father, he has not been eating or drinking well as well at home. He just drink some Sprite and Gatorade. He does not have an appetite. His father also stated he drank a whole bottle of Nyquil from 8PM to about 2 AM last night. Past medical history: ADD, depression Medications: None Allergies: Amoxicillinrash Family history: Nonpertinent Surgical history: None Social history: Started drinking heavily a few years ago, and it really amped up within the last 3 to 4 months. He has been without work. Previously worked as a automation tester. Lives with his girlfriend. He was drinking a quarter to half a gallon of vodka daily. Has gone through withdrawals in the past before. Asked his father for help as he wants to maintain his sobriety now. Meds/Allgy Home Medications Ambulatory Orders Medication Instructions Recorded Confirmed cyclobenzaprine 10 mg tablet 10 mg PO TID PRN Spasms 07/07/21 07/07/21 tramadol 50 mg tablet 50 mg PO BID PRN Pain 07/07/21 07/07/21 lorazepam 1 mg tablet 1 mg PO TID PRN Anxiety #12 tabs 08/16/21 omeprazole 40 mg capsule,delayed 40 mg PO BID #60 caps 08/16/21 release ondansetron 4 mg disintegrating 4 mg translingual Q6H PRN Nausea / 08/16/21 tablet Vomiting #10 tabs trazodone 50 mg tablet 50 mg PO HS #30 tabs 08/16/21 Allergies Allergies Allergy/AdvReac Type Severity Reaction Status Date / Time No Known Drug Allergies Allergy Verified 12/01/24 14:35 PFSH Social History Social History Smoking Status: Current some day smoker Do you vape?: No Do you feel safe in your home environment?: Yes Suffered physical, verbal, emotional, or financial abuse?: No History of Abuse: No Frequency: Occasional POLST Patient has POLST: No POLST Status: Full Code Review of Systems Patient is actively having hallucinations. He is not responsive to verbal or physical stimuli. Unable to elicit review of system from him at this time. Status of ROS: unobtainable due to medical condition Prior Level of Functionality: Functional and independent at baseline. Exam Constitutional abnormal general appearance (disheveled) and other (actively hallucinating), distress noted (moderate) and level of alertness abnormal (confused) HENMT normocephalic and head/scalp atraumatic Eyes PERRL pupillary dilatation noted bilaterally Neck/C-Spine visual inspection normal and trachea midline Lymph no lymphadenopathy noted Chest inspection of chest normal and palpation of chest normal Respiratory breath sounds equal bilaterally, normal respiratory effort, clear to auscultation bilaterally, no wheezes, no rales and no retractions Cardiovascular heart rate abnormal (tachycardic) and regular rhythm noted Gastrointestinal abdomen normal to inspection, abdomen soft to palpation and nontender to palpation Genitourinary no CVA tenderness, bladder normal to palpation and external appearance normal Back/Pelvis spine normal to inspection, no thoracic spine tenderness and no lumbar spine tenderness Extremities normal to inspection and normal to palpation Neurology no focal motor deficit noted Psychiatry Patient not responsive to verbal or physical stimuli, actively hallucinating, grabbing at objects in front of him that are not there Conclusion/Plan Problem List (1) Acute hyperactive alcohol withdrawal delirium: Plan: Patient presents about 48 hours after his last drink in alcohol withdrawal with active delirium tremens. Continue Ativan as needed [id number]. CIWA protocol in place. Continue Precedex for sedation. Continue scheduled Valium 10 mg 3 times daily for 24 hours. Will wean down as tolerated. Continue aggressive potassium and magnesium supplementation as well. Did have alcohol withdrawal seizure at home. Seizure precautions in place. CT head ordered, pending. Social work consulted, patient is trying to get sober. (2) Dextromethorphan poisoning: Plan: Patient's father endorses that the patient drank a whole bottle of NyQuil from about 8 PM to 2 AM prior to admission. [place] poison control spoken with. Recommend standard dose NAC. Acetaminophen level was elevated to 23.7. They do recommend checking this 2 hours prior to the completion of the protocol, which is in about 20 hours. They recommend checking INR and LFTs every 12 hours as well. Qualifiers: Encounter type: initial encounter Injury intent: accidental or unintentional Qualified Code(s): T48.3X1A - Poisoning by antitussives, accidental (unintentional), initial encounter (3) Hypokalemia: Plan: Continue aggressive repletion, continue to trend. (4) Hypomagnesemia: Plan: Continue aggressive repletion, continue to trend. (5) Transaminitis: Plan: Likely due to longstanding alcohol use, as well as compounded by recent NyQuil overdose, high acetaminophen levels. Management as above. Continue trend. Lab Results Lab results reviewed: Yes 12/01/24 14:42 12/01/24 14:42 Diagnostic Imaging Results Diagnostic Imaging Results: positive Final report reviewed EKG Results EKG Findings: Pending completion of EKG.
[2024-12-01] MEDS: MAGNESIUM SULFATE 2 GRAM 2 GM/50 ML BAG IV ONE (18:12)
[2024-12-01] MEDS: NICOTINE 14 MG PATCH TOP STA (18:25)
[2024-12-01] MEDS ORDERED: diphenhydrAMINE INJ 50 MG/ML VIAL IVP PRN (18:25)
[2024-12-01] MEDS ORDERED: FAMOTIDINE 20 MG/2 ML VIAL IVP PRN (18:25)
[2024-12-01 18:56] LABS: INR 1.2 (0.8-1.2); PT - PROTHROMBIN TIME 13.1 secs (9.9-12.6)
--- NOTE | 2024-12-01 18:59 | CT Report ---
PROCEDURE: CT Head WO INDICATIONS: head inj TECHNIQUE: Helical axial CT of the brain was obtained without contrast and reformatted in multiple p lanes. Radiation dose reduction was achieved using automated exposure control or adjustment of mA and /or kV according to patient size. COMPARISON: None FINDINGS: Image quality: Motion artifact limits assessment of multiple images CSF spaces: Ventricles are appropriate in size and position. No hydrocephalus. Basal cisterns unre markable. Brain: No midline shift. No intracranial masses or hemorrhage. [place]-white matter interface is norm al. Skull and face: Calvarium and skull base are unremarkable without suspicious lesion. Sinuses: Visualized sinuses and mastoids are clear. IMPRESSION: No evidence of significant hemorrhage or mass effect. Limited by motion artifact Reviewed by: Aj Orantes MD on 12/01/2024 5:58 PM AKST Approved by: Aj Orantes MD on 12/01/2024 5:58 PM AKST Station ID: [id number]
[2024-12-01] MEDS ORDERED: SODIUM CHLORIDE FLUSH 0.9% 10 ML SYRINGE IVP PRN (19:32)
[2024-12-01] MEDS ORDERED: ONDANSETRON 4 MG/2 ML VIAL IVP PRN (19:32)
[2024-12-01] MEDS ORDERED: ONDANSETRON ODT 4 MG TABLET TL PRN (19:32)
[2024-12-01] MEDS: PANTOPRAZOLE 40 MG VIAL IVP SCH (19:40)
[2024-12-01] MEDS: diazePAM INJ 5 MG/ML SYRINGE IVP STA (20:26)
[2024-12-01] MEDS: ACETYLCYSTEINE IV STA (20:55)
[2024-12-01] MEDS: DEXTROSE 5% IV STA (20:55)
[2024-12-01] MEDS: diazePAM INJ 5 MG/ML SYRINGE IVP SCH (21:13)
[2024-12-01] MEDS: LORazepam 2 MG/ML VIAL IVP PRN (21:46)
[2024-12-01] MEDS: ACETYLCYSTEINE 3,200 MG in DEXTROSE 5% 500 ML IV ONE (22:14)
[2024-12-01] MEDS: DEXMEDETOMIDINE 400 MCG/100 ML 100 ML IV PRN (22:49)
[2024-12-02] MEDS: POTASSIUM CHLOR 10 MEQ/100 ML 10 MEQ/100 ML BAG IV SCH ×2 (01:31→09:19)
[2024-12-02] MEDS: SODIUM CHLORIDE FLUSH 0.9% 10 ML SYRINGE IVP SCH (02:21)
[2024-12-02] MEDS ORDERED: DEXTROSE 5% 1,000 ML IV ONE (04:39)
[2024-12-02] MEDS: DEXTROSE 5% IV ONE (04:47)
[2024-12-02] MEDS: ACETYLCYSTEINE IV ONE (04:47)
[2024-12-02 07:12] LABS: HGB - HEMOGLOBIN 12.8 g/dL (14.0-18.0); MEAN CORPUSCULAR HEMOGLOBIN 37.1 pg (27.0-31.0); MEAN CORPUSCULAR HGB CONC 33.7 g/dL (32.0-36.0); MEAN CORPUSCULAR VOLUME 110.1 fL (80.0-94.0); MEAN PLATELET VOLUME 10.3 fL (7.4-11.4); RED BLOOD COUNT 3.45 10^6/uL (4.70-6.10); RED CELL DISTRIBUTION WIDTH 12.1 % (12.0-15.0); WHITE BLOOD COUNT 6.6 x10^3/uL (4.8-10.8)
[2024-12-02 07:18] LABS: INR 1.4 (0.8-1.2); PT - PROTHROMBIN TIME 14.8 secs (9.9-12.6)
[2024-12-02 07:20] LABS: CALCIUM, IONIZED 1.13 mmol/L (1.09-1.30); VBG PH 7.499 (7.31-7.41)
[2024-12-02 07:31] LABS: ALBUMIN 3.7 g/dL (3.2-5.5); ALBUMIN/GLOBULIN RATIO 1.7 (1.0-2.2); BILIRUBIN,TOTAL 2.1 mg/dL (0.2-1.0); CALCIUM 8.4 mg/dL (8.5-10.3); CREATININE 0.5 mg/dL (0.6-1.3); MAGNESIUM 1.8 mg/dL (1.7-2.3); POTASSIUM 3.5 mmol/L (3.5-4.5); TOTAL PROTEIN 5.9 g/dL (6.4-8.9)
[2024-12-02] MEDS: ENOXAPARIN 40 MG/0.4 ML SYRINGE SUBQ SCH (08:39)
--- NOTE | 2024-12-02 09:05 | PROVIDER PROGRESS NOTE ---
Subjective Subjective Subjective: This morning, patient was sleeping. He did awaken to verbal stimuli. He appears confused. Understandably, he is on Precedex as well as scheduled benzodiazepines at this time. His father is at bedside, and states that he had an uneventful night. Current Medications Current Medications Current Medications: Current Medications Generic Name Dose Route Start Last Admin Trade Name Freq PRN Reason Stop Dose Admin Diazepam 5 mg 12/02/24 14:00 Diazepam Inj 5 Mg/Ml Syringe IVP TID IRVIN Diphenhydramine HCl 50 mg 12/01/24 18:25 Diphenhydramine Inj 50 Mg/Ml Vial IVP 12/03/24 18:25 .ONCE PRN Allergy Symptoms Enoxaparin Sodium 40 mg 12/02/24 09:00 12/02/24 08:39 Enoxaparin 40 Mg/0.4 Ml Syringe SUBQ 40 mg DAILY IRVIN Administration Famotidine 20 mg 12/01/24 18:25 Famotidine 20 Mg/2 Ml Vial IVP 12/03/24 18:25 .ONCE PRN Allergy Symptoms Dexmedetomidine/Sodium Chloride 100 mls @ 3.175 mls/hr 12/01/24 18:46 12/02/24 08:39 Precedex Premix IV 0.06 mcg/kg/hr .[id number] PRN 0.9 mls/hr Agitation Titration Protocol 0.2 MCG/KG/HR Multivitamins 10 ml/ Thiamine 1,011.2 mls @ 100 mls/hr 12/02/24 09:00 HCl 100 mg/ Folic Acid 1 mg/ IV Sodium Chloride DAILY IRVIN Lorazepam 2 - 20 mg 12/01/24 19:32 12/01/24 23:41 Lorazepam 2 Mg/Ml Vial IVP 6 mg Q15M PRN Administration RASS > 0 Protocol Ondansetron HCl 4 mg 12/01/24 19:32 Ondansetron 4 Mg/2 Ml Vial IVP Q6HR PRN Nausea / Vomiting Ondansetron HCl 4 mg 12/01/24 19:32 Ondansetron Odt 4 Mg Tablet TL Q6HR PRN Nausea / Vomiting Pantoprazole Sodium 40 mg 12/01/24 19:32 12/02/24 06:11 Pantoprazole 40 Mg Vial IVP 40 mg QDAC IRVIN Administration Sodium Chloride 10 ml 12/02/24 01:00 12/02/24 08:39 Sodium Chloride Flush 0.9% 10 Ml Syringe IVP 10 ml 0100,0900,1700 IRVIN Administration Sodium Chloride 10 ml 12/01/24 19:32 Sodium Chloride Flush 0.9% 10 Ml Syringe IVP PRN PRN NEEDED PER PROVIDER ORDERS Objective Vital Signs/Intake & Output Reviewed Vital Signs: Yes Vital Signs: Vital Signs x48h Temp Pulse Resp BP Pulse Ox 12/02/24 08:00 91 26 H 86/60 L 98 12/02/24 07:00 91 25 H 89/60 L 97 12/02/24 06:00 92 25 H 95/69 97 12/02/24 05:00 93 26 H 109/78 95 12/02/24 04:00 96 27 H 107/78 97 12/02/24 03:00 96 28 H 114/78 96 12/02/24 02:00 99.0 F 95 27 H 114/74 97 Intake & Output: Intake & Output 11/29/24 11/30/24 12/01/24 12/02/24 23:59 23:59 23:59 23:59 Intake Total 1516.5 / 1516.5 1039 / 1039 Output Total 0 / 0 0 / 0 Balance 1516.5 / 1516.5 1039 / 1039 Weight (kg) 63.5 kg 64 kg Objective General Appearance: positive No acute distress and Lethargic; negative Alert or Mild distress Eyes Bilateral: positive Normal inspection; negative PERRL (dilated, reactive) ENT: positive ENT inspection nml, Pharynx nml and No signs of dehydration Neck: positive Nml inspection, Thyroid nml and No JVD Respiratory: positive Chest non-tender, No respiratory distress and Breath sounds nml; negative Wheezes, Rales or Rhonchi Cardiovascular: positive Regular rate & rhythm, No murmur and No gallop; negative Irregularly irregular, Tachycardia or Bradycardia Abdomen: positive Non-tender and No distention; negative Hepatomegaly or Splenomegaly Back: positive Nml inspection; negative CVA tenderness (R) or CVA tenderness (L) Skin: positive Color nml, No rash, Warm and Dry Extremities: positive Non-tender, Full ROM and No pedal edema Neurologic/Psychiatric: positive Other (Follows commands, squeezing both hands, wiggles toes); negative Disoriented to place or Disoriented to time Lab Results 12/02/24 07:03 12/02/24 07:03 Other Labs: Lab Results x24hrs 12/02/24 12/02/24 12/01/24 Range/Units 07:03 06:30 19:40 WBC 6.6 (4.8-10.8) x10^3/uL RBC 3.45 L (4.70-6.10) 10^6/uL Hgb 12.8 L (14.0-18.0) g/dL Hct 38.0 L (42.0-52.0) % MCV 110.1 H (80.0-94.0) fL MCH 37.1 H (27.0-31.0) pg MCHC 33.7 (32.0-36.0) g/dL RDW 12.1 (12.0-15.0) % Plt Count 171 (130-450) 10^3/uL MPV 10.3 (7.4-11.4) fL Neut # (Auto) (1.5-6.6) 10^3/uL Lymph # (Auto) (1.5-3.5) 10^3/uL [place] # (Auto) (0.0-1.0) 10^3/uL Eos # (Auto) (0.0-0.7) 10^3/uL Baso # (Auto) (0.0-0.1) 10^3/uL Absolute Nucleated RBC x10^3/uL Nucleated RBC % /100WBC PT 14.8 H (9.9-12.6) secs INR 1.4 H (0.8-1.2) VBG pH 7.499 H (7.31-7.41) Ionized Calcium 1.13 (1.09-1.30) mmol/L Sodium 137 (135-145) mmol/L Potassium 3.5 (3.5-4.5) mmol/L Chloride 103 (101-111) mmol/L Carbon Dioxide 26 (21-32) mmol/L Anion Gap 8.0 (6-13) BUN 6 (6-20) mg/dL Creatinine 0.5 L (0.6-1.3) mg/dL Estimated GFR (MDRD) 194 (>89) Glucose 144 H (74-104) mg/dL Lactic Acid (0.5-2.2) mmol/L Calcium 8.4 L (8.5-10.3) mg/dL Phosphorus 3.5 (2.5-5.0) mg/dL Magnesium 1.8 (1.7-2.3) mg/dL Total Bilirubin 2.1 H (0.2-1.0) mg/dL AST 44 H (10-42) IU/L ALT 52 (10-60) IU/L Alkaline Phosphatase 90 (42-121) IU/L Total Protein 5.9 L (6.4-8.9) g/dL Albumin 3.7 (3.2-5.5) g/dL Globulin 2.2 (2.1-4.2) g/dL Albumin/Globulin Ratio 1.7 (1.0-2.2) Lipase (11-82) U/L TSH (0.34-5.60) uIU/mL Urine Color Urine Clarity (CLEAR) Urine pH (5.0-7.5) PH Ur Specific [place] (1.002-1.030) Urine Protein (NEGATIVE) mg/dL Urine Glucose (UA) (NEGATIVE) mg/dL Urine Ketones (NEGATIVE) mg/dL Urine Occult Blood (NEGATIVE) Urine Nitrite (NEGATIVE) Urine Bilirubin (NEGATIVE) Urine Urobilinogen (NORMAL) E.U./dL Ur Leukocyte Esterase (NEGATIVE) Urine RBC (0-5) /HPF Urine WBC (0-3) /HPF Ur Squamous Epith Cells (<= Few) Urine Bacteria (None Seen) /HPF Urine Casts /LPF Urine Mucus Ur Microscopic Review Urine Culture Comments Nasal Screen MRSA (PCR) NEGATIVE (NEGATIVE) Salicylates mg/dL Urine Opiates Screen (NEGATIVE) Ur Buprenorphine Scrn (NEGATIVE) Ur Oxycodone Screen (NEGATIVE) Urine Methadone Screen (NEGATIVE) Acetaminophen ug/mL Ur Barbiturates Screen (NEGATIVE) Ur Tricyclics Screen (NEGATIVE) Ur Phencyclidine Scrn (NEGATIVE) Ur Amphetamine Screen (NEGATIVE) U Methamphetamines Scrn (NEGATIVE) U Benzodiazepines Scrn (NEGATIVE) Urine Cocaine Screen (NEGATIVE) U Cannabinoids Screen (NEGATIVE) Ur Drug Screen Comment Ethyl Alcohol mg/dL 12/01/24 12/01/24 12/01/24 Range/Units 18:42 14:49 14:49 WBC (4.8-10.8) x10^3/uL RBC (4.70-6.10) 10^6/uL Hgb (14.0-18.0) g/dL Hct (42.0-52.0) % MCV (80.0-94.0) fL MCH (27.0-31.0) pg MCHC (32.0-36.0) g/dL RDW (12.0-15.0) % Plt Count (130-450) 10^3/uL MPV (7.4-11.4) fL Neut # (Auto) (1.5-6.6) 10^3/uL Lymph # (Auto) (1.5-3.5) 10^3/uL [place] # (Auto) (0.0-1.0) 10^3/uL Eos # (Auto) (0.0-0.7) 10^3/uL Baso # (Auto) (0.0-0.1) 10^3/uL Absolute Nucleated RBC x10^3/uL Nucleated RBC % /100WBC PT 13.1 H (9.9-12.6) secs INR 1.2 (0.8-1.2) VBG pH (7.31-7.41) Ionized Calcium (1.09-1.30) mmol/L Sodium (135-145) mmol/L Potassium (3.5-4.5) mmol/L Chloride (101-111) mmol/L Carbon Dioxide (21-32) mmol/L Anion Gap (6-13) BUN (6-20) mg/dL Creatinine (0.6-1.3) mg/dL Estimated GFR (MDRD) (>89) Glucose (74-104) mg/dL Lactic Acid 0.8 (0.5-2.2) mmol/L Calcium (8.5-10.3) mg/dL Phosphorus (2.5-5.0) mg/dL Magnesium (1.7-2.3) mg/dL Total Bilirubin (0.2-1.0) mg/dL AST (10-42) IU/L ALT (10-60) IU/L Alkaline Phosphatase (42-121) IU/L Total Protein (6.4-8.9) g/dL Albumin (3.2-5.5) g/dL Globulin (2.1-4.2) g/dL Albumin/Globulin Ratio (1.0-2.2) Lipase (11-82) U/L TSH (0.34-5.60) uIU/mL Urine Color DARK YELLOW Urine Clarity HAZY (CLEAR) Urine pH 6.0 (5.0-7.5) PH Ur Specific [place] >=1.030 H (1.002-1.030) Urine Protein 100 H (NEGATIVE) mg/dL Urine Glucose (UA) NEGATIVE (NEGATIVE) mg/dL Urine Ketones TRACE (NEGATIVE) mg/dL Urine Occult Blood NEGATIVE (NEGATIVE) Urine Nitrite NEGATIVE (NEGATIVE) Urine Bilirubin MODERATE H (NEGATIVE) Urine Urobilinogen 1 (NORMAL) (NORMAL) E.U./dL Ur Leukocyte Esterase NEGATIVE (NEGATIVE) Urine RBC None Seen (0-5) /HPF Urine WBC 4-5 (0-3) /HPF Ur Squamous Epith Cells RARE Squamous (<= Few) Urine Bacteria None Seen (None Seen) /HPF Urine Casts 0-2 WBC Casts 0-2 Hyaline Casts /LPF Urine Mucus Few Strands Ur Microscopic Review INDICATED Urine Culture Comments NOT INDICATED Nasal Screen MRSA (PCR) (NEGATIVE) Salicylates mg/dL Urine Opiates Screen NEGATIVE (NEGATIVE) Ur Buprenorphine Scrn NEGATIVE (NEGATIVE) Ur Oxycodone Screen NEGATIVE (NEGATIVE) Urine Methadone Screen NEGATIVE (NEGATIVE) Acetaminophen ug/mL Ur Barbiturates Screen NEGATIVE (NEGATIVE) Ur Tricyclics Screen POSITIVE H (NEGATIVE) Ur Phencyclidine Scrn NEGATIVE (NEGATIVE) Ur Amphetamine Screen NEGATIVE (NEGATIVE) U Methamphetamines Scrn NEGATIVE (NEGATIVE) U Benzodiazepines Scrn NEGATIVE (NEGATIVE) Urine Cocaine Screen NEGATIVE (NEGATIVE) U Cannabinoids Screen POSITIVE H (NEGATIVE) Ur Drug Screen Comment CUTOFF CONC BELOW: Ethyl Alcohol mg/dL 12/01/24 Range/Units 14:42 WBC 4.9 (4.8-10.8) x10^3/uL RBC 3.68 L (4.70-6.10) 10^6/uL Hgb 13.7 L (14.0-18.0) g/dL Hct 40.0 L (42.0-52.0) % MCV 108.7 H (80.0-94.0) fL MCH 37.2 H (27.0-31.0) pg MCHC 34.3 (32.0-36.0) g/dL RDW 12.1 (12.0-15.0) % Plt Count 208 (130-450) 10^3/uL MPV 9.7 (7.4-11.4) fL Neut # (Auto) 3.5 (1.5-6.6) 10^3/uL Lymph # (Auto) 0.8 L (1.5-3.5) 10^3/uL [place] # (Auto) 0.5 (0.0-1.0) 10^3/uL Eos # (Auto) 0.0 (0.0-0.7) 10^3/uL Baso # (Auto) 0.1 (0.0-0.1) 10^3/uL Absolute Nucleated RBC 0.00 x10^3/uL Nucleated RBC % 0.0 /100WBC PT (9.9-12.6) secs INR (0.8-1.2) VBG pH (7.31-7.41) Ionized Calcium (1.09-1.30) mmol/L Sodium 138 (135-145) mmol/L Potassium 2.9 L (3.5-4.5) mmol/L Chloride 97 L (101-111) mmol/L Carbon Dioxide 28 (21-32) mmol/L Anion Gap 13.0 (6-13) BUN 6 (6-20) mg/dL Creatinine 0.8 (0.6-1.3) mg/dL Estimated GFR (MDRD) 113 (>89) Glucose 105 H (74-104) mg/dL Lactic Acid (0.5-2.2) mmol/L Calcium 9.4 (8.5-10.3) mg/dL Phosphorus (2.5-5.0) mg/dL Magnesium 1.4 L (1.7-2.3) mg/dL Total Bilirubin 2.2 H (0.2-1.0) mg/dL AST 81 H (10-42) IU/L ALT 79 H (10-60) IU/L Alkaline Phosphatase 137 H (42-121) IU/L Total Protein 7.4 (6.4-8.9) g/dL Albumin 4.5 (3.2-5.5) g/dL Globulin 2.9 (2.1-4.2) g/dL Albumin/Globulin Ratio 1.6 (1.0-2.2) Lipase 21 (11-82) U/L TSH 3.64 (0.34-5.60) uIU/mL Urine Color Urine Clarity (CLEAR) Urine pH (5.0-7.5) PH Ur Specific [place] (1.002-1.030) Urine Protein (NEGATIVE) mg/dL Urine Glucose (UA) (NEGATIVE) mg/dL Urine Ketones (NEGATIVE) mg/dL Urine Occult Blood (NEGATIVE) Urine Nitrite (NEGATIVE) Urine Bilirubin (NEGATIVE) Urine Urobilinogen (NORMAL) E.U./dL Ur Leukocyte Esterase (NEGATIVE) Urine RBC (0-5) /HPF Urine WBC (0-3) /HPF Ur Squamous Epith Cells (<= Few) Urine Bacteria (None Seen) /HPF Urine Casts /LPF Urine Mucus Ur Microscopic Review Urine Culture Comments Nasal Screen MRSA (PCR) (NEGATIVE) Salicylates < 1.5 mg/dL Urine Opiates Screen (NEGATIVE) Ur Buprenorphine Scrn (NEGATIVE) Ur Oxycodone Screen (NEGATIVE) Urine Methadone Screen (NEGATIVE) Acetaminophen 23.7 ug/mL Ur Barbiturates Screen (NEGATIVE) Ur Tricyclics Screen (NEGATIVE) Ur Phencyclidine Scrn (NEGATIVE) Ur Amphetamine Screen (NEGATIVE) U Methamphetamines Scrn (NEGATIVE) U Benzodiazepines Scrn (NEGATIVE) Urine Cocaine Screen (NEGATIVE) U Cannabinoids Screen (NEGATIVE) Ur Drug Screen Comment Ethyl Alcohol < 10.0 mg/dL Diagnostic Imaging Diagnostic Imaging Results: positive Final report reviewed Assessment/Plan Problem List (1) Acute hyperactive alcohol withdrawal delirium: Impression: Patient still undergoing alcohol withdrawal. Requiring Precedex drip at this time, as well as scheduled Valium. Decrease Valium to 5 mg 3 times daily. Continue CIWA protocol as needed. Last Ativan was given yesterday evening around 11 PM. Continue multivitamin, thiamine, folic acid supplementation via IV banana bag. Will switch to oral supplementation when patient is awake and able to swallow. Continue seizure precautions. (2) Dextromethorphan poisoning: Impression: Patient's father endorses that the patient drank a whole bottle of NyQuil from about 8 PM to 2 AM prior to admission. [place] poison control spoken with. Recommend standard dose NAC. Acetaminophen level was elevated to 23.7. Recommend rechecking this evening at 19:00, ordered. They recommend checking INR and LFTs every 12 hours as well. Qualifiers: Encounter type: initial encounter Injury intent: accidental or unintentional Qualified Code(s): T48.3X1A - Poisoning by antitussives, accidental (unintentional), initial encounter (3) Hypokalemia: Impression: Resolved. Continue to encourage p.o. intake when awake. (4) Hypomagnesemia: Impression: Resolved. Continue to encourage p.o. intake when awake. (5) Transaminitis: Impression: Likely due to alcohol use, concern for acetaminophen toxicity. Complete NAC protocol. LFTs are downtrending. Continue to monitor. Continue to encourage alcohol cessation.
[2024-12-02] MEDS: MULTIVITAMIN 10 ML, THIAMINE INJ 100 MG, FOLIC ACID INJ 1 MG in SODIUM CHLORIDE 0.9% 1,... IV SCH (09:12)
[2024-12-02] MEDS: NICOTINE 21 MG PATCH TOP SCH (12:06)
[2024-12-02] MEDS: IBUPROFEN 400 MG TABLET PO PRN (12:22)
[2024-12-02] MEDS: diazePAM INJ 5 MG/ML SYRINGE IVP SCH (13:58)
[2024-12-02 19:47] LABS: ALT ALANINE AMINOTRANSFERASE 44 IU/L (10-60); AST ASPARTATE AMINOTRANSFERASE 35 IU/L (10-42)
[2024-12-02 20:07] LABS: INR 1.2 (0.8-1.2); PT - PROTHROMBIN TIME 13.5 secs (9.9-12.6)
[2024-12-03 07:11] VITALS: O2SAT 100
[2024-12-03 07:51] LABS: CALCIUM, IONIZED 1.19 mmol/L (1.09-1.30); VBG PH 7.379 (7.31-7.41)
[2024-12-03 07:54] LABS: MAGNESIUM 1.8 mg/dL (1.7-2.3); PHOSPHORUS 4.3 mg/dL (2.5-5.0); POTASSIUM 2.9 mmol/L (3.5-4.5)
[2024-12-03] MEDS: PRENATAL VITAMIN TABLET PO SCH (09:08)
[2024-12-03] MEDS: THIAMINE 100 MG TABLET PO SCH (09:08)
[2024-12-03] MEDS: diazePAM 5 MG TABLET PO SCH (09:08)
[2024-12-03] MEDS: NICOTINE 14 MG PATCH TOP SCH (09:10)
[2024-12-03] MEDS: PANTOPRAZOLE 40 MG TABLET PO SCH (09:14)
--- NOTE | 2024-12-03 09:31 | PROVIDER PROGRESS NOTE ---
Subjective Subjective Subjective: Patient is a 29-year-old male with a history of depression, ADD who presented with acute alcohol withdrawal, delirium tremens, as well as accidental overdose of Zzzquil. He was placed in the ICU, was on a Precedex drip, CIWA protocol with as needed Ativan and scheduled Valium. [place] poison control was also spoken with, and he completed a course of NAC. This morning, he is doing much better. He is alert and oriented x 4. He would like to go home. He denies any fevers, chills. He is committed to maintaining his sobriety. He is open to talking with neonatal social worker about resources. He does not want to be in an inpatient rehab facility, but expresses interest in outpatient rehab resources. We also spoke about naltrexone on discharge, to reduce his cravings, and he is okay with trying this on discharge. His father was at bedside, and all his questions were answered as well. Anticipate discharge tomorrow. Current Medications Current Medications Current Medications: Current Medications Generic Name Dose Route Start Last Admin Trade Name Freq PRN Reason Stop Dose Admin Diazepam 5 mg 12/03/24 09:00 12/03/24 09:08 Diazepam 5 Mg Tablet PO 5 mg BID IRVIN Administration Enoxaparin Sodium 40 mg 12/02/24 09:00 12/03/24 09:08 Enoxaparin 40 Mg/0.4 Ml Syringe SUBQ 40 mg DAILY IRVIN Administration Ibuprofen 400 mg 12/02/24 12:11 Ibuprofen 400 Mg Tablet PO Q6HR PRN Moderate Pain (Level 4-6) Lorazepam 2 - 20 mg 12/01/24 19:32 12/02/24 17:53 Lorazepam 2 Mg/Ml Vial IVP 2 mg Q15M PRN Administration RASS > 0 Protocol Nicotine 1 patch 12/02/24 12:00 12/03/24 09:10 Nicotine 21 Mg Patch TOP 1 patch DAILY IRVIN Administration Nicotine 1 patch 12/03/24 09:00 12/03/24 09:10 Nicotine 14 Mg Patch TOP Not Given DAILY IRVIN Ondansetron HCl 4 mg 12/01/24 19:32 Ondansetron 4 Mg/2 Ml Vial IVP Q6HR PRN Nausea / Vomiting Ondansetron HCl 4 mg 12/01/24 19:32 Ondansetron Odt 4 Mg Tablet TL Q6HR PRN Nausea / Vomiting Pantoprazole Sodium 40 mg 12/03/24 09:00 12/03/24 09:14 Pantoprazole 40 Mg Tablet PO Not Given QDAC IRVIN Multivit/Folic Acid/Iron 1 tab 12/03/24 08:00 12/03/24 09:08 Vitamin Tablet PO 1 tab DAILYWM IRVIN Administration Sodium Chloride 10 ml 12/02/24 01:00 12/03/24 09:14 Sodium Chloride Flush 0.9% 10 Ml Syringe IVP 10 ml 0100,0900,1700 IRVIN Administration Sodium Chloride 10 ml 12/01/24 19:32 Sodium Chloride Flush 0.9% 10 Ml Syringe IVP PRN PRN NEEDED PER PROVIDER ORDERS Thiamine HCl 100 mg 12/03/24 09:00 12/03/24 09:08 Thiamine 100 Mg Tablet PO 100 mg DAILY IRVIN Administration Objective Vital Signs/Intake & Output Reviewed Vital Signs: Yes Vital Signs: Vital Signs x48h Temp Pulse Resp BP Pulse Ox 12/03/24 09:00 101 H 19 123/92 H 100 12/03/24 08:00 98.8 F 96 13 137/99 H 100 12/03/24 07:00 82 21 138/97 H 100 12/03/24 06:00 90 19 122/87 94 12/03/24 05:00 94 18 125/92 H 96 12/03/24 04:00 96 17 119/88 97 12/03/24 03:00 90 20 133/96 H 97 12/03/24 02:00 83 142/103 H 100 Intake & Output: Intake & Output 11/30/24 12/01/24 12/02/24 12/03/24 23:59 23:59 23:59 23:59 Intake Total 1516.5 / 1516.5 3191.2 / 3191.2 196 / 196 Output Total 0 / 0 250 / 250 0 / 0 Balance 1516.5 / 1516.5 2941.2 / 2941.2 196 196 Weight (kg) 63.5 kg 64 kg 64 kg Objective General Appearance: positive No acute distress and Alert; negative Anxious Eyes Bilateral: positive Normal inspection, PERRL (dilated, reactive) and EOMI ENT: positive ENT inspection nml, Pharynx nml and No signs of dehydration Neck: positive Nml inspection, Thyroid nml and No JVD Respiratory: positive Chest non-tender, No respiratory distress and Breath sounds nml; negative Wheezes, Rales or Rhonchi Cardiovascular: positive Regular rate & rhythm, No murmur and No gallop; negative Irregularly irregular, Tachycardia or Bradycardia Abdomen: positive Non-tender and No distention; negative Hepatomegaly or Splenomegaly Back: positive Nml inspection; negative CVA tenderness (R) or CVA tenderness (L) Skin: positive Color nml, No rash, Warm and Dry Extremities: positive Non-tender, Full ROM and No pedal edema Neurologic/Psychiatric: positive Oriented x3; negative Mood/affect nml (Flat affect noted), Weakness or Slurred/abnml speech Lab Results 12/02/24 07:03 12/03/24 07:00 Other Labs: Lab Results x24hrs 12/03/24 12/02/24 Range/Units 07:00 19:14 PT 13.5 H (9.9-12.6) secs INR 1.2 (0.8-1.2) VBG pH 7.379 (7.31-7.41) Ionized Calcium 1.19 (1.09-1.30) mmol/L Potassium 2.9 L (3.5-4.5) mmol/L Phosphorus 4.3 (2.5-5.0) mg/dL Magnesium 1.8 (1.7-2.3) mg/dL AST 35 (10-42) IU/L ALT 44 (10-60) IU/L Acetaminophen 0.4 ug/mL Diagnostic Imaging Diagnostic Imaging Results: positive Final report reviewed Assessment/Plan Problem List (1) Acute hyperactive alcohol withdrawal delirium: Impression: Patient appears to be coming out of active alcohol withdrawal. Still on Precedex drip this morning, will wean off. Switched IV scheduled Valium 5 mg 3 times daily to p.o. Valium 5 mg twice daily. Plan to d/c valium tomorrow. Social work to speak to him about outpatient substance abuse resources. Will change to Med/Surg from ICU status. Continue multivitamin, thiamine, folic acid supplementation. Continue seizure precautions. Witnessed seizure by father likely due to alcohol withdrawal, no indication for Keppra initiation at this time. Likely discharge home tomorrow, 12/04. (2) Dextromethorphan poisoning: Impression: Patient's father endorses that the patient drank a whole bottle of NyQuil from about 8 PM to 2 AM prior to admission. It was then discovered it was Zzzquil (dextromethorpan vs. diphenhdyramine). [place] poison control spoken with. Recommend standard dose NAC. Acetaminophen level was elevated to 23.7. These labs were rechecked, within normal limits. Poison control has signed off. Qualifiers: Encounter type: initial encounter Injury intent: accidental or unintentional Qualified Code(s): T48.3X1A - Poisoning by antitussives, accidental (unintentional), initial encounter (3) Hypokalemia: Impression: Continue repletion. Continue to encourage p.o. intake. Repeat potassium ordered for 2 PM after repletion. (4) Hypomagnesemia: Impression: Resolved. Continue to encourage p.o. intake. (5) Transaminitis: Impression: Resolved. Likely due to alcohol use, concern for acetaminophen toxicity. Completed NAC protocol. Continue to trend. Continue to encourage alcohol cessation. (6) Tobacco use: Impression: Patient smokes about a pack a day. States he quit about 5 to 6 days ago. Currently has two nicotine patches ordered for total dose of 35 mcgs/day.
[2024-12-03] MEDS: POTASSIUM CHLORIDE 20 MEQ TABLET PO ONE ×3 (10:28→17:42)
[2024-12-03] MEDS: POTASSIUM CHLOR 10 MEQ/100 ML 10 MEQ/100 ML BAG IV SCH (10:29)
[2024-12-03 14:31] VITALS: BP 140/104; TEMP 99.7
[2024-12-03 17:23] LABS: CALCIUM 9.1 mg/dL (8.5-10.3); CREATININE 0.5 mg/dL (0.6-1.3); POTASSIUM 3.3 mmol/L (3.5-4.5)
--- NOTE | 2024-12-03 17:31 | Discharge Summary ---
"Discharge Summary Admit Date: 12/01/24 Discharge Date: 12/03/24 Discharging Provider: Dr. Malika Castrejon Primary Care Provider: None Code Status: Attempt Resuscitation Discharge Facility Name: Home with family DIAGNOSES Admission Diagnoses: Acute hyperactive alcohol withdrawal delirium Dextromethorphan poisoning Hypokalemia Hypomagnesemia Transaminitis Discharge Diagnoses with Status of Each Condition: Acute hyperactive alcohol withdrawal deliriumpatient required ICU stay with Precedex, scheduled Valium, Ativan as needed. Is doing much better now. Has been off Precedex since this morning. Committed to maintaining his sobriety. Will prescribe naltrexone on discharge, as well as vitamin and thiamine. Advised to continue to abstain from alcohol. Dextromethorphan poisoningwash and Poison control spoken with, completed treatment of neck. Hypokalemiaresolving. Encourage p.o. intake. Encourage follow-up with primary care physician in 1 week to reassess potassium levels. Hypomagnesemiaresolved. Transaminitisresolved. Tobacco usecontinue to licensed mental health counselor on cessation. HPI History of Present Illness: Patient is a 29-year-old male with a history of depression, ADD, alcohol use who presents for alcohol withdrawal, as well as delirium tremens. History is elicited from father and sister at bedside. They state that he has been drinking heavily for about 3 to 4 months. They think he may have drink and a quarter to half gallon of vodka every day for the last few weeks. He was previously living with his girlfriend. His last drink was 2 days ago, on . He then called his father to help him go through alcohol withdrawal. For the last 2 days, he has been going through withdrawals. Earlier today, around 1 PM, he had an episode where he fell on the stairs. He then witnessed him shaking, with movement of his upper and lower extremities. He previously has had a seizure before, last time it was attributed to his alcohol use as well. Patient has never been intubated before. He has had alcohol withdrawal related seizures before. It usually takes him 3 to 4 days to go through these withdrawal symptoms. Per the father, he has not been eating or drinking well as well at home. He just drink some Sprite and Gatorade. He does not have an appetite. His father also stated he drank a whole bottle of Nyquil from 8PM to about 2 AM last night. Past medical history: ADD, depression Medications: None Allergies: Amoxicillinrash Family history: Nonpertinent Surgical history: None Social history: Started drinking heavily a few years ago, and it really amped up within the last 3 to 4 months. He has been without work. Previously worked as a procurement technician. Lives with his girlfriend. He was drinking a quarter to half a gallon of vodka daily. Has gone through withdrawals in the past before. Asked his father for help as he wants to maintain his sobriety now. CONSULTS | PROCEDURES Consultations: Social work Procedures: CT head HOSPITAL COURSE Hospital Course: Patient is a 29-year-old male with a history of ADD, depression, chronic alcohol use who presents due to alcohol withdrawal. He is in active delirium tremens. He had a witnessed withdrawal seizure at home as well. He was placed in the ICU, started on scheduled Valium 10 mg IV 3 times daily, as well as Precedex, as well as Ativan as needed. This was quickly down escalated to oral Valium. He was also hypokalemic and hypomagnesemic on admission due to decreased p.o. intake. This was repleted. Overall, patient is now doing well. He is out of this active withdrawal. He is eager to go home. His family will be helping take care of him. He was advised to follow-up with a primary care physician and have his electrolytes rechecked in a week or 2. He was advised to continue abstaining from alcohol. Will start him on naltrexone for withdrawals. Medically stable for discharge. ALLERGIES Allergies Allergy/AdvReac Type Severity Reaction Status Date / Time No Known Drug Allergies Allergy Verified 12/01/24 14:35 MEDICATIONS Ambulatory Orders Medication Instructions Recorded Confirmed naltrexone 50 mg tablet 50 mg PO DAILY #30 tabs 12/03/24 vit,calcium 27-ferrous 1 tab PO DAILYWM #30 tabs 12/03/24 fum 60 mg iron-folic acid 1 mg tablet (Trinatal Rx 1) thiamine mononitrate (vit B1) 100 100 mg PO DAILY #30 tabs 12/03/24 mg tablet PHYSICAL EXAM AT DISCHARGE General Appearance: positive No acute distress and Alert; negative Anxious or Lethargic Eyes Bilateral: positive Normal inspection, PERRL and EOMI ENT: positive ENT inspection nml, Pharynx nml and No signs of dehydration Neck: positive Nml inspection, Thyroid nml and No JVD Respiratory: positive Chest non-tender, No respiratory distress and Breath sounds nml; negative Wheezes, Rales or Rhonchi Cardiovascular: positive Regular rate & rhythm and Tachycardia Peripheral Pulses: positive 2+ Abdomen: positive Non-tender; negative Nml bowel sounds, Guarding, Rebound, Hepatomegaly or Mass Back: positive Nml inspection; negative CVA tenderness (R) or CVA tenderness (L) Skin: positive Color nml, No rash, Warm and Dry Extremities: positive Non-tender, Full ROM and Nml appearance Neurologic/Psychiatric: positive Oriented x3, CN's nml (2-12) and Mood/affect nml LABS 12/02/24 07:03 12/03/24 16:45 DIAGNOSTIC IMAGING Diagnostic Imaging Results: Final report reviewed QUALITY (Female Hip Fx Only) Was patient sent home on osteoporosis medication?: No FOLLOW UP Follow Up: Follow up with PCP. TIME SPENT Time Spent in Discharge (Minutes): 30 Discharge Plan Discharge Patient Disposition: Home, Self Care Condition: Stable Prescriptions: New Trinatal Rx 1 60 mg iron-1 mg Tablet 1 tab PO DAILYWM Qty: 30 0RF thiamine mononitrate (vit B1) 100 mg Tablet 100 mg PO DAILY Qty: 30 0RF naltrexone 50 mg tablet 50 mg PO DAILY Qty: 30 0RF Activity Restrictions: Activity as Tolerated Diet: Regular Health Concerns: You came in because of alcohol withdrawal, as well as an alcohol withdrawal seizure, as well as an accidental overdose of your ZzzQuil. You were placed in the ICU for closer monitoring. You required a lot of IV medications to help you get through your withdrawals. For the accidental overdose of your ZzzQuil, we did contact [place] poison control and they recommended medication that helped protect your liver which you received over 24 hours. Your potassium and your magnesium levels are very low. This is likely because you have not been eating well at home. Please continue to eat and drink well. We talked about maintaining your sobriety. You are interested in trying naltrexone, a medication that should help reduce some of the cravings you have for alcohol. I have sent this to your pharmacy, the [facility] in [place]. I have also sent some vitamins to your pharmacy. Please continue to work hard on maintaining your sobriety. You are in a very dangerous spot when you first came in, and you are very satya to have recovered so well. Please follow-up with the primary care physician in the next week or so, if able; establish care with one on the list that was provided to you. We are glad you are feeling better, thank you for allowing us to take care of you. Print Language: Spanish Patient Instructions: Addiction Recovery Counseling, ED Seizure Alcohol Withdrawal Stand Alone Forms: PCP List"
== END 2024-12-03 18:19 | disposition home or self-care (01) | DRG 897 ==
LOC: ED 14:28 → ICU 18:06
PROVIDERS: ADMIT Internal Medicine; ATTEND Internal Medicine
DX: F32.A Depression, unspecified; D64.9 Anemia, unspecified; F10.931 Alcohol use, unspecified with withdrawal delirium; E87.6 Hypokalemia; Z79.899 Other long term (current) drug therapy; F17.200 Nicotine dependence, unspecified, uncomplicated; T48.3X1A Poisoning by antitussives, accidental (unintentional), initial encounter; Z71.6 Tobacco abuse counseling; E83.42 Hypomagnesemia; R74.01 Elevation of levels of liver transaminase levels